=== PATIENT | male | born 1945 | race Caucasian/White ===

== ENCOUNTER 2022-02-26 12:16 | Inpatient (IN) | payer OTHER ==
[2022-02-26 14:35] VITALS: BMI 25.7
[2022-02-26] MEDS ORDERED: MAGNESIUM HYDROX 2400MG/30ML ORAL SUSPENSION 30 ML CUP PO PRN (15:23)
[2022-02-26] MEDS ORDERED: ACETAMINOPHEN 325 MG TABLET (FP) PO PRN (15:23)
[2022-02-26] MEDS ORDERED: hydrOXYzine PAMOATE 25 MG CAPSULE (FP) PO PRN (15:23)
[2022-02-26] MEDS ORDERED: MAG HYDROX/AL HYDROX/SIMETH 30 ML UNIT-DOSE CUP PO PRN (15:23)
[2022-02-26] MEDS ORDERED: POLYETHYLENE GLYCOL (HEALTHYLAX) 3350 17 GM PACKET PO PRN (15:23)
[2022-02-26] MEDS ORDERED: LOPERAMIDE HCL 2 MG CAPSULE PO PRN (15:23)
[2022-02-26] MEDS ORDERED: NALOXONE HCL (KLOXXADO) 8 MG SPRAY NS PRN (15:23)
[2022-02-26] MEDS ORDERED: BENZOCAINE/MENTHOL (CHLORASEPTIC ) LOZENGE MM PRN (15:23)
[2022-02-26] MEDS ORDERED: P-EPHED 60MG/TRIPROLIDI 2.5MG TABLET PO PRN (15:23)
[2022-02-26] MEDS ORDERED: ACETAMINOPHEN 325 MG TABLET (FP) ONE (17:18)
[2022-02-26] MEDS: MELATONIN 5 MG TABLETS PO SCH (21:42)
[2022-02-26] MEDS: THIAMINE HCL 100 MG TABLET (FP) PO SCH (21:42)
[2022-02-26] MEDS ORDERED: TUBERCULIN PPD 5 TU/0.1ML VIAL ID ONE (22:18)
[2022-02-27] MEDS ORDERED: methaDONE HCL 10 MG TABLET PO ONE (10:06)
[2022-02-27] MEDS ORDERED: methaDONE 40 MG, methaDONE 30 MG PO SCH (10:30)
[2022-02-27] MEDS: PRENATAL VITAMINS W/ FOLIC ACID TABLET (FP) PO SCH (10:40)
[2022-02-27] MEDS: ASPIRIN 81 MG CHEWABLE TABLETS PO SCH (10:40)
[2022-02-27] MEDS: NICOTINE 14 MG/24 HOURS TOPICAL PATCH TD SCH (10:41)
[2022-02-27 12:56] LABS: HEMATOCRIT 35.2 % (35.4-49); HEMOGLOBIN 11.1 GM/dL (11.7-16.9); MCH 25.7 pg (25.7-33.7); MCHC 31.6 g/dl (32.0-35.9); MEAN CELL VOLUME 81.3 fl (80-96); MEAN PLT VOLUME 8.3 fl (7.5-11.1); PLATELET COUNT 176 10^3/uL (134-434); RBC 4.34 M/mm3 (4.00-5.60); RDW 15.5 % (11.9-15.9); WHITE BLOOD COUNT 4.4 K/mm3 (4.0-10.0)
[2022-02-27 13:02] LABS: BLOOD UREA NITROGEN 17.1 mg/dL (7-18); CALCIUM 9.5 mg/dL (8.5-10.1)
[2022-02-27 13:05] LABS: CREATININE 0.9 mg/dL (0.55-1.3)
[2022-02-27 13:07] LABS: BILIRUBIN,TOTAL 0.8 mg/dL (0.2-1); TOT PROT 7.5 g/dl (6.4-8.2)
[2022-02-27] MEDS: LACTULOSE 20 GM/30 ML UDC (FOR ORAL USE ONLY) PO PRN ×2 (15:58→21:17)
[2022-02-27] MEDS: MELATONIN 5 MG TABLETS PO SCH (21:17)
[2022-02-27] MEDS: THIAMINE HCL 100 MG TABLET (FP) PO SCH (21:18)
[2022-02-28] MEDS ORDERED: methaDONE HCL 10 MG TABLET PO SCH (06:00)
[2022-02-28] MEDS: methaDONE 40 MG, methaDONE 30 MG PO SCH (06:29)
[2022-02-28] MEDS: PRENATAL VITAMINS W/ FOLIC ACID TABLET (FP) PO SCH (09:49)
[2022-02-28] MEDS: LACTULOSE 20 GM/30 ML UDC (FOR ORAL USE ONLY) PO PRN ×2 (09:49→21:26)
[2022-02-28] MEDS: ASPIRIN 81 MG CHEWABLE TABLETS PO SCH (09:49)
[2022-02-28] MEDS: NICOTINE 14 MG/24 HOURS TOPICAL PATCH TD SCH (09:50)
[2022-02-28] MEDS: THIAMINE HCL 100 MG TABLET (FP) PO SCH (21:26)
[2022-02-28] MEDS: MELATONIN 5 MG TABLETS PO SCH (21:26)
[2022-02-28] MEDS: guaiFENesin 200 MG/10 ML 10 ML UNIT-DOSE CUPS PO PRN (21:27)
[2022-03-01] MEDS: guaiFENesin 200 MG/10 ML 10 ML UNIT-DOSE CUPS PO PRN (06:44)
[2022-03-01] MEDS: methaDONE 40 MG, methaDONE 30 MG PO SCH (06:44)
[2022-03-01] MEDS: ASPIRIN 81 MG CHEWABLE TABLETS PO SCH (09:53)
[2022-03-01] MEDS: NICOTINE 14 MG/24 HOURS TOPICAL PATCH TD SCH (09:54)
[2022-03-01] MEDS: PRENATAL VITAMINS W/ FOLIC ACID TABLET (FP) PO SCH (09:54)
[2022-03-01] MEDS: LACTULOSE 20 GM/30 ML UDC (FOR ORAL USE ONLY) PO PRN (10:54)
[2022-03-01] MEDS: THIAMINE HCL 100 MG TABLET (FP) PO SCH (21:16)
[2022-03-01] MEDS: MELATONIN 5 MG TABLETS PO SCH (21:16)
[2022-03-02] MEDS: methaDONE 40 MG, methaDONE 30 MG PO SCH (06:17)
[2022-03-02] MEDS: NICOTINE 14 MG/24 HOURS TOPICAL PATCH TD SCH (09:28)
[2022-03-02] MEDS: LACTULOSE 20 GM/30 ML UDC (FOR ORAL USE ONLY) PO PRN (09:28)
[2022-03-02] MEDS: PRENATAL VITAMINS W/ FOLIC ACID TABLET (FP) PO SCH (09:28)
[2022-03-02] MEDS: ASPIRIN 81 MG CHEWABLE TABLETS PO SCH (09:28)
[2022-03-02] MEDS ORDERED: NICOTINE 14 MG/24 HOURS TOPICAL PATCH TD PRN (13:27)
[2022-03-02] MEDS: LACTULOSE 20 GM/30 ML UDC (FOR ORAL USE ONLY) PO SCH ×2 (14:05→21:42)
[2022-03-02] MEDS: THIAMINE HCL 100 MG TABLET (FP) PO SCH (21:42)
[2022-03-02] MEDS: MELATONIN 5 MG TABLETS PO SCH (21:42)
[2022-03-02] MEDS: guaiFENesin 200 MG/10 ML 10 ML UNIT-DOSE CUPS PO PRN (21:42)
[2022-03-03] MEDS: methaDONE 40 MG, methaDONE 30 MG PO SCH (06:21)
[2022-03-03] MEDS: LACTULOSE 20 GM/30 ML UDC (FOR ORAL USE ONLY) PO SCH ×3 (06:21→21:25)
[2022-03-03] MEDS: PRENATAL VITAMINS W/ FOLIC ACID TABLET (FP) PO SCH (09:47)
[2022-03-03] MEDS: ASPIRIN 81 MG CHEWABLE TABLETS PO SCH (09:47)
[2022-03-03] MEDS: IBUPROFEN 400 MG TABLET (FP) PO PRN (11:17)
[2022-03-03] MEDS: MELATONIN 5 MG TABLETS PO SCH (21:25)
[2022-03-03] MEDS: THIAMINE HCL 100 MG TABLET (FP) PO SCH (21:25)
[2022-03-04] MEDS: LACTULOSE 20 GM/30 ML UDC (FOR ORAL USE ONLY) PO SCH ×3 (06:16→21:20)
[2022-03-04] MEDS: methaDONE 40 MG, methaDONE 30 MG PO SCH (06:17)
[2022-03-04] MEDS: PRENATAL VITAMINS W/ FOLIC ACID TABLET (FP) PO SCH (09:57)
[2022-03-04] MEDS: ASPIRIN 81 MG CHEWABLE TABLETS PO SCH (09:57)
[2022-03-04] MEDS: guaiFENesin 200 MG/10 ML 10 ML UNIT-DOSE CUPS PO PRN (11:49)
[2022-03-04] MEDS ORDERED: AZITHROMYCIN 250 MG TABLET PO ONE (15:08)
[2022-03-04] MEDS: ALBUTEROL SO4 HFA INHALER IH PRN (15:40)
[2022-03-04] MEDS: AMOXICILLIN 500 MG CAPSULE (FP) PO SCH ×2 (15:52→21:21)
[2022-03-04] MEDS: MELATONIN 5 MG TABLETS PO SCH (21:21)
[2022-03-04] MEDS: THIAMINE HCL 100 MG TABLET (FP) PO SCH (21:21)
[2022-03-05] MEDS: methaDONE 40 MG, methaDONE 30 MG PO SCH (06:18)
[2022-03-05] MEDS: LACTULOSE 20 GM/30 ML UDC (FOR ORAL USE ONLY) PO SCH ×3 (06:18→21:29)
[2022-03-05] MEDS: AMOXICILLIN 500 MG CAPSULE (FP) PO SCH ×3 (06:18→21:29)
[2022-03-05] MEDS: PRENATAL VITAMINS W/ FOLIC ACID TABLET (FP) PO SCH (09:25)
[2022-03-05] MEDS: ASPIRIN 81 MG CHEWABLE TABLETS PO SCH (09:25)
[2022-03-05] MEDS ORDERED: AZITHROMYCIN 250 MG TABLET PO SCH (10:00)
[2022-03-05] MEDS: THIAMINE HCL 100 MG TABLET (FP) PO SCH (21:29)
[2022-03-05] MEDS: MELATONIN 5 MG TABLETS PO SCH (21:29)
[2022-03-06] MEDS: methaDONE 40 MG, methaDONE 30 MG PO SCH (06:19)
[2022-03-06] MEDS: LACTULOSE 20 GM/30 ML UDC (FOR ORAL USE ONLY) PO SCH ×3 (06:19→21:16)
[2022-03-06] MEDS: AMOXICILLIN 500 MG CAPSULE (FP) PO SCH ×3 (06:19→21:16)
[2022-03-06] MEDS: PRENATAL VITAMINS W/ FOLIC ACID TABLET (FP) PO SCH (09:34)
[2022-03-06] MEDS: ASPIRIN 81 MG CHEWABLE TABLETS PO SCH (09:34)
[2022-03-06] MEDS: MELATONIN 5 MG TABLETS PO SCH (21:16)
[2022-03-06] MEDS: THIAMINE HCL 100 MG TABLET (FP) PO SCH (21:16)
[2022-03-07] MEDS: LACTULOSE 20 GM/30 ML UDC (FOR ORAL USE ONLY) PO SCH ×3 (06:13→21:08)
[2022-03-07] MEDS: AMOXICILLIN 500 MG CAPSULE (FP) PO SCH ×3 (06:13→21:09)
[2022-03-07] MEDS: methaDONE 40 MG, methaDONE 30 MG PO SCH (06:14)
[2022-03-07] MEDS ORDERED: methaDONE HCL 10 MG TABLET PO SCH (06:15)
[2022-03-07] MEDS: PRENATAL VITAMINS W/ FOLIC ACID TABLET (FP) PO SCH (09:39)
[2022-03-07] MEDS: ASPIRIN 81 MG CHEWABLE TABLETS PO SCH (09:39)
[2022-03-07] MEDS: guaiFENesin 200 MG/10 ML 10 ML UNIT-DOSE CUPS PO PRN ×2 (16:28→23:22)
[2022-03-07] MEDS: MELATONIN 5 MG TABLETS PO SCH (21:08)
[2022-03-07] MEDS: THIAMINE HCL 100 MG TABLET (FP) PO SCH (21:08)
[2022-03-08] MEDS: AMOXICILLIN 500 MG CAPSULE (FP) PO SCH ×3 (06:06→21:23)
[2022-03-08] MEDS: LACTULOSE 20 GM/30 ML UDC (FOR ORAL USE ONLY) PO SCH ×3 (06:07→21:22)
[2022-03-08] MEDS: methaDONE 40 MG, methaDONE 30 MG PO SCH (06:07)
[2022-03-08] MEDS: guaiFENesin 200 MG/10 ML 10 ML UNIT-DOSE CUPS PO PRN ×3 (06:09→22:57)
[2022-03-08] MEDS: PRENATAL VITAMINS W/ FOLIC ACID TABLET (FP) PO SCH (10:05)
[2022-03-08] MEDS: ASPIRIN 81 MG CHEWABLE TABLETS PO SCH (10:05)
[2022-03-08] MEDS: MELATONIN 5 MG TABLETS PO SCH (21:22)
[2022-03-08] MEDS: THIAMINE HCL 100 MG TABLET (FP) PO SCH (21:22)
[2022-03-09] MEDS: LACTULOSE 20 GM/30 ML UDC (FOR ORAL USE ONLY) PO SCH (06:21)
[2022-03-09] MEDS: AMOXICILLIN 500 MG CAPSULE (FP) PO SCH ×3 (06:21→21:17)
[2022-03-09] MEDS: methaDONE 40 MG, methaDONE 30 MG PO SCH (06:22)
[2022-03-09] MEDS: guaiFENesin 200 MG/10 ML 10 ML UNIT-DOSE CUPS PO PRN (07:42)
[2022-03-09] MEDS: ASPIRIN 81 MG CHEWABLE TABLETS PO SCH (09:20)
[2022-03-09] MEDS: PRENATAL VITAMINS W/ FOLIC ACID TABLET (FP) PO SCH (09:20)
[2022-03-09] MEDS: ALBUTEROL SO4 HFA INHALER IH PRN (09:21)
[2022-03-09] MEDS: NICOTINE 10 MG CARTRIDGE (INHALER) IH PRN (09:42)
[2022-03-09] MEDS: THIAMINE HCL 100 MG TABLET (FP) PO SCH (21:17)
[2022-03-09] MEDS: MELATONIN 5 MG TABLETS PO SCH (21:17)
[2022-03-10] MEDS: AMOXICILLIN 500 MG CAPSULE (FP) PO SCH ×3 (06:23→21:25)
[2022-03-10] MEDS: guaiFENesin 200 MG/10 ML 10 ML UNIT-DOSE CUPS PO PRN ×2 (06:23→17:42)
[2022-03-10] MEDS: methaDONE 40 MG, methaDONE 30 MG PO SCH (06:23)
[2022-03-10] MEDS: ASPIRIN 81 MG CHEWABLE TABLETS PO SCH (09:03)
[2022-03-10] MEDS: PRENATAL VITAMINS W/ FOLIC ACID TABLET (FP) PO SCH (09:03)
[2022-03-10] MEDS: THIAMINE HCL 100 MG TABLET (FP) PO SCH (21:25)
[2022-03-10] MEDS: MELATONIN 5 MG TABLETS PO SCH (21:26)
[2022-03-11] MEDS: guaiFENesin 200 MG/10 ML 10 ML UNIT-DOSE CUPS PO PRN ×3 (06:19→21:26)
[2022-03-11] MEDS: AMOXICILLIN 500 MG CAPSULE (FP) PO SCH ×2 (06:19→13:15)
[2022-03-11] MEDS: methaDONE 40 MG, methaDONE 30 MG PO SCH (06:20)
[2022-03-11] MEDS: PRENATAL VITAMINS W/ FOLIC ACID TABLET (FP) PO SCH (10:03)
[2022-03-11] MEDS: ASPIRIN 81 MG CHEWABLE TABLETS PO SCH (10:03)
[2022-03-11] MEDS: MELATONIN 5 MG TABLETS PO SCH (21:26)
[2022-03-11] MEDS: THIAMINE HCL 100 MG TABLET (FP) PO SCH (21:26)
[2022-03-12] MEDS: methaDONE 40 MG, methaDONE 30 MG PO SCH (06:09)
[2022-03-12] MEDS: guaiFENesin 200 MG/10 ML 10 ML UNIT-DOSE CUPS PO PRN (06:09)
[2022-03-12] MEDS: ASPIRIN 81 MG CHEWABLE TABLETS PO SCH (09:45)
[2022-03-12] MEDS: PRENATAL VITAMINS W/ FOLIC ACID TABLET (FP) PO SCH (09:45)
[2022-03-12] MEDS ORDERED: guaiFENesin 600 MG TABLET.ER (FP) PO ONE (14:03)
[2022-03-12] MEDS: THIAMINE HCL 100 MG TABLET (FP) PO SCH (21:02)
[2022-03-12] MEDS: guaiFENesin 600 MG TABLET.ER (FP) PO SCH (21:02)
[2022-03-12] MEDS: MELATONIN 5 MG TABLETS PO SCH (21:02)
[2022-03-13] MEDS: methaDONE 40 MG, methaDONE 30 MG PO SCH (06:30)
[2022-03-13] MEDS: ASPIRIN 81 MG CHEWABLE TABLETS PO SCH (09:21)
[2022-03-13] MEDS: PRENATAL VITAMINS W/ FOLIC ACID TABLET (FP) PO SCH (09:21)
[2022-03-13] MEDS: guaiFENesin 600 MG TABLET.ER (FP) PO SCH ×2 (09:22→21:10)
[2022-03-13] MEDS: THIAMINE HCL 100 MG TABLET (FP) PO SCH (21:10)
[2022-03-13] MEDS: MELATONIN 5 MG TABLETS PO SCH (21:10)
[2022-03-14] MEDS: methaDONE 40 MG, methaDONE 30 MG PO SCH (06:20)
[2022-03-14] MEDS: guaiFENesin 600 MG TABLET.ER (FP) PO SCH ×2 (09:38→21:32)
[2022-03-14] MEDS: PRENATAL VITAMINS W/ FOLIC ACID TABLET (FP) PO SCH (09:38)
[2022-03-14] MEDS: ASPIRIN 81 MG CHEWABLE TABLETS PO SCH (09:38)
[2022-03-14] MEDS: IBUPROFEN 400 MG TABLET (FP) PO PRN ×2 (16:09→22:49)
[2022-03-14] MEDS: MELATONIN 5 MG TABLETS PO SCH (21:32)
[2022-03-14] MEDS: THIAMINE HCL 100 MG TABLET (FP) PO SCH (21:32)
[2022-03-15] MEDS: methaDONE 40 MG, methaDONE 30 MG PO SCH (06:11)
[2022-03-15] MEDS: PRENATAL VITAMINS W/ FOLIC ACID TABLET (FP) PO SCH (09:10)
[2022-03-15] MEDS: ASPIRIN 81 MG CHEWABLE TABLETS PO SCH (09:10)
[2022-03-15] MEDS: guaiFENesin 600 MG TABLET.ER (FP) PO SCH ×2 (09:10→21:27)
[2022-03-15] MEDS: IBUPROFEN 400 MG TABLET (FP) PO PRN ×2 (13:01→21:28)
[2022-03-15] MEDS: THIAMINE HCL 100 MG TABLET (FP) PO SCH (21:27)
[2022-03-15] MEDS: MELATONIN 5 MG TABLETS PO SCH (21:27)
[2022-03-16] MEDS: methaDONE 40 MG, methaDONE 30 MG PO SCH (06:08)
[2022-03-16] MEDS: NICOTINE 10 MG CARTRIDGE (INHALER) IH PRN (08:52)
[2022-03-16] MEDS: PRENATAL VITAMINS W/ FOLIC ACID TABLET (FP) PO SCH (09:30)
[2022-03-16] MEDS: ASPIRIN 81 MG CHEWABLE TABLETS PO SCH (09:30)
[2022-03-16] MEDS: guaiFENesin 600 MG TABLET.ER (FP) PO SCH ×2 (09:30→21:23)
[2022-03-16] MEDS: THIAMINE HCL 100 MG TABLET (FP) PO SCH (21:23)
[2022-03-16] MEDS: MELATONIN 5 MG TABLETS PO SCH (21:23)
[2022-03-17] MEDS: methaDONE 40 MG, methaDONE 30 MG PO SCH (06:09)
[2022-03-17] MEDS: guaiFENesin 600 MG TABLET.ER (FP) PO SCH ×2 (09:22→21:25)
[2022-03-17] MEDS: PRENATAL VITAMINS W/ FOLIC ACID TABLET (FP) PO SCH (09:22)
[2022-03-17] MEDS: ASPIRIN 81 MG CHEWABLE TABLETS PO SCH (09:22)
[2022-03-17 20:45] VITALS: RESP 18; TEMP 97.1
[2022-03-17] MEDS: THIAMINE HCL 100 MG TABLET (FP) PO SCH (21:25)
[2022-03-17] MEDS: MELATONIN 5 MG TABLETS PO SCH (21:25)
[2022-03-18] MEDS: methaDONE 40 MG, methaDONE 30 MG PO SCH (06:15)
[2022-03-18] MEDS: PRENATAL VITAMINS W/ FOLIC ACID TABLET (FP) PO SCH (09:07)
[2022-03-18] MEDS: ASPIRIN 81 MG CHEWABLE TABLETS PO SCH (09:07)
[2022-03-18] MEDS: guaiFENesin 600 MG TABLET.ER (FP) PO SCH (09:07)
[2022-03-18 09:39] VITALS: BP 148/66; PULSE 89
[2022-03-18] MEDS: IBUPROFEN 400 MG TABLET (FP) PO PRN (09:43)
== END 2022-03-18 09:40 | disposition home or self-care (01) | DRG 895 ==
LOC: YASAS 12:16 → Y3E 19:51
PROVIDERS: ADMIT Allergy & Immunology; ATTEND Psychiatry & Neurology Pain Medicine
PROC: HZ42ZZZ Group Counseling for Substance Abuse Treatment, Cognitive-Behavioral (ICD-10-PCS; principal; 2022-02-26)
DX: F11.20 Opioid dependence, uncomplicated (principal); F17.210 Nicotine dependence, cigarettes, uncomplicated; J45.909 Unspecified asthma, uncomplicated; R94.31 Abnormal electrocardiogram [ECG] [EKG]; R05.9 Cough, unspecified; K76.9 Liver disease, unspecified; Z28.310 Unvaccinated for COVID-19; Z86.19 Personal history of other infectious and parasitic diseases
CPT/HCPCS: 36415; 71046-TC-FY; 80053; 82140; 85027; 86593; 86780; 87811; 93005; 93010; C9803-CS; U0003; U0005